=== PATIENT | male | born 1950 | race Caucasian/White ===

== ENCOUNTER → 2024-01-04 | Outpatient (CLI) | payer MEDICARE, OTHER, SELFPAY ==
--- NOTE | 2024-01-04 08:14 | VDUE_ITS ---
Reason For Study: Pre-Op Mapping Right Lower Arm Left Arm Proximal Radial artery diameter 2.2 x 2.3 Left Brachial artery diameter 4.2 x 3.7 mm. mm. Left Brachial artery waveform is monophasic . Proximal Radial artery waveform is Cephalic Vein at distal forearm measures 1.2 triphasic . x 1.5 mm. Right Arm Cephalic Vein at mid forearm measures 1.4 x Right Brachial artery diameter 4.3 x 3.9 mm. 1.5 mm. Right Brachial artery waveform is Cephalic Vein proximal forearm measures 1.9 x triphasic . 1.9 mm. Cephalic Vein at distal forearm measures 1.3 Cephalic Vein distal upper arm measures 1.3 x x 1.5 mm. 1.5 mm. Cephalic Vein at mid forearm measures 1.5 x Cephalic Vein at mid upper arm measures 1.1 x 1.6 mm. 1.1 mm. Cephalic Vein proximal forearm measures 1.7 Cephalic Vein at proximal upper arm measures x 1.7 mm. 1.1 x 1.6 mm. Cephalic Vein distal upper arm measures 2.6 Multiple branches noted in upper arm. x 2.6 mm. Proximal Basilic vein measures 4.1 x 3.7 mm. Cephalic Vein at mid upper arm measures 1.3 Mid Basilic vein measures 3.4 x 3.1 mm. x 1.3 mm. Distal Basilic vein measures 3.0 x 2.9 mm. Cephalic Vein at proximal upper arm measures Left Lower Arm 1.2 x 1.4 mm. Proximal Radial artery diameter 1.9 x 1.7 mm. Multiple branches noted in upper arm. Proximal Radial artery waveform is Proximal Basilic vein measures 4.5 x 4.7 mm. monophasic . Mid Basilic vein measures 1.7 x 2.1 mm. Distal Basilic vein measures 3.4 x 3.4 mm. VL/Dialysis Vein Map PRE-OP BILAT Interpretation Summary Bilateral upper extremity veins patent with measurements above. Right upper extremity arteries patent with normal waveforms and measurements ab ove. Left upper extremity arteries patent with monophasic waveforms throughout sugge sting more proximal disease. Measurements above. Ordering Physician: Presley Milan Referring Physician: Elena Kelley Performed By: Yariel Rivero RVT ???
== END | disposition home or self-care (01) ==
PROVIDERS: PCP Internal Medicine; Referring Provider Student in an Organized Health Care Education/Training Program; Visit Provider Student in an Organized Health Care Education/Training Program
DX: Z01.818 Encounter for other preprocedural examination (principal); N18.5 Chronic kidney disease, stage 5
CPT/HCPCS: 93985

== ENCOUNTER 2024-03-29 08:26 | Day surgery (SDC) | payer MEDICARE, OTHER, SELFPAY ==
[2024-03-23 15:53] LABS: Hematocrit 34.8 % (40-54); Hemoglobin 11.2 g/dL (13.0-16.5); Mean Corp Hgb Conc 32.2 g/dL (32-36); Mean Corpuscular Hgb 30.5 pg (27.0-32.0); Mean Corpuscular Volume 94.8 fL (80-94); Platelet Count 203 K/mm3 (150-450); RBC Distribution Width CV 13.2 % (11.6-14.6); RBC Distribution Width SD 45.7 fl (35.1-43.9); Red Blood Count 3.67 M/mm3 (4.6-6.2); White Blood Count 9.1 K/mm3 (4.4-11.0)
[2024-03-23 16:18] LABS: Anion Gap 4 (5-15); BUN 56 mg/dL (7-18); BUN/Creat Ratio 11.5 RATIO (10-20); Calcium,Total 10.5 mg/dL (8.5-10.1); Chloride 106 mmol/L (98-107); Creatinine, Serum 4.89 mg/dL (0.70-1.30); EST Glomerular Filtration Rate 13 mL/min (>60); Est Glom Filt Rate - Afr Amer 15 mL/min (>60); Glucose 99 mg/dL (74-106); Potassium 4.8 mmol/L (3.5-5.1); Sodium Level 135 mmol/L (136-145)
[2024-03-29] VITALS (8 sets, daily range): BP systolic 83–109; BP diastolic 65–79; PULSE 60–96; RESP 16; TEMP 36.4–36.9; O2SAT 93–97; BMI 22.8
--- NOTE | 2024-03-29 09:18 | PRE.ANES_ITS ---
ASA Classification* ASA Classification ASA Classification: 3 Assessment & Plan Anesthesia* Anesthesia Assessment Anesthesia Assessment: Discussed sedation and/or anesthesia options, risks, benefits, and alternatives with patient/parents/legal guardian/POA. Questions invited. The patient/parents/legal guardian/POA seems to understand and agrees to proceed with anesthesia plan. Reviewed the physical assessment, medical history, allergy history and patient home medications list prior to surgery/procedure/anesthetic and documented any changes. Performed airway and anesthesia risk assessments. Anesthesia Type Anesthesia Type: MAC (SEE WRITTEN PRE ANESTHESIA RECORD FOR FULL ASSESSMENT) Anesthesia Focused Assessment* Temperature: 98.3 F Pulse Rate: 60 Blood Pressure: 109/79 Respiratory Rate: 16 Pulse Ox: 96 Airway Assessment Mouth opens: >3 cm Mallampati Score: II Focused Labs Anesthesia Preop lab: CBC WBC 9.1 K/mm3 (4.4-11.0) 03/23/24 15:33 RBC 3.67 M/mm3 (4.6-6.2) L 03/23/24 15:33 Hgb 11.2 g/dL (13.0-16.5) L 03/23/24 15:33 Hct 34.8 % (40-54) L 03/23/24 15:33 Plt Count 203 K/mm3 (150-450) 03/23/24 15:33 CHEMISTRY Potassium 4.8 mmol/L (3.5-5.1) 03/23/24 15:33 Sodium 135 mmol/L (136-145) L 03/23/24 15:33 BUN 56 mg/dL (7-18) H 03/23/24 15:33 Creatinine 4.89 mg/dL (0.70-1.30) H 03/23/24 15:33 Glucose 99 mg/dL (74-106) 03/23/24 15:33 COAG Pre-Assessment Diagnosis/Proposed Procedure Planned Operative Procedure(s): (R) right upper extremity Arteriovenous Fistula,Creation possible graft Anesthesia History Anesthesia History - [employer]: Anesthesia History - [employer] Hx Hospitalization No 03/16/24 15:34 Any Problems With Anesthesia No 03/16/24 15:34 Cholinesterase deficiency No 03/16/24 15:34 You/Your Family Experience No 03/16/24 15:34 fever (hyperthermia) with Relationship Recent Exposure to Contagious No 03/29/24 08:49 Disease Does patient have nerve No 03/16/24 15:34 stimulator Patient instructed to have device shut off --Does patient have Pacemaker No 03/29/24 08:49 or ICD? When Was Last Pacemaker Check QUESTION #4 FULL TEXT: You/Your Family Experience fever (hyperthermia) with Anesthesia Last Oral Intake Last Oral intake: Last Oral Intake NPO since 02:00 03/29/24 08:49 Meds taken in AM with sips of Yes 03/29/24 08:49 water? Meds patient instructed to AMLODIPINE 03/29/24 08:49 take am of surgery BEBADEPRIL COREG HYDRALAZINE PONV PONV - [employer]: PONV - [employer] Female No 03/16/24 15:34 HX of Motion Sickness No 03/16/24 15:34 HX of N/V After Surgery No 03/16/24 15:34 Non-Smoker Yes 03/16/24 15:34 Duration of Surgery greater No 03/16/24 15:34 than 60 minutes Number of Risk Factors 1 03/16/24 15:34 PONV Score Low Risk 03/16/24 15:34 Height & Weight Height & Weight: Anesthesia: Height & Weight Height 5 ft 9 in 03/29/24 08:49 Weight: 70.4 kg 03/29/24 08:49 Body Mass Index (BMI) 22.8 03/29/24 08:49 Respiratory Assessment Respiratory Assessment - [employer]: Respiratory Tract Infection Hx - [employer] Hx Respiratory Tract Infection No 03/16/24 15:34 STOP Sleep Apnea STOP Sleep Apnea - [employer]: STOP Sleep Apnea - [employer] Hx Hypertension Yes: CONTROLLED ON MED 03/16/24 15:34 Hx Sleep Apnea No 03/16/24 15:34 CPAP BIPAP Do you snore loudly (louder No 03/16/24 15:34 than talking or can be heard Do you often feel tired/ No 03/16/24 15:34 fatigued/ sleepy during daytime? Has anyone observed you stop No 03/16/24 15:34 breathing during sleep? STOP Results Negative 03/16/24 15:34 QUESTION #5 FULL TEXT : Do you snore loudly (louder than talking or can be heard through closed doors)? 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 Specify any problems Hx of Preganancy in last 3 N/A 03/16/24 15:34 Months Nurse Filling Out Transfusion VCHRISTIN 03/16/24 15:34 & Questions: Date: 03/16/24 03/16/24 15:34 Time: 15:35 03/16/24 15:34 Patient unable to answer at this time (ie. confused, unrespo /Reproduction History /Reproductive History - [employer]: /Reproductive Hx- [employer] Hx Now No 03/16/24 15:34 Gestational Age (in weeks): EDC: Hx Hx Para Hx Section SAB No 03/16/24 15:34 Active Medications Active Medications: Current Medications Generic Name Dose Route Start Last Admin Trade Name Freq PRN Reason Stop Dose Admin Cefazolin Sodium 2 gm/ N/A 20 mls @ 400 mls/hr 03/29/24 10:00 IV 03/29/24 10:02 PREOP ONE [facility] Medical History Wears dentures Wears glasses History of renal disease Anemia Injury of back Back pain Injury of head and neck Smoker History of cardioversion History of echocardiogram Hypertension Cardiology follow-up encounter Hx of infection Afib Home Medications ?Medication ?Instructions ?Recorded ?Last Taken ?Type calcitriol 0.5 mcg capsule 0.5 mcg PO QDAY 02/18/24 03/28/24 History hydralazine 25 mg tablet 25 mg PO TID 02/18/24 03/28/24 History sodium bicarbonate 650 mg tablet 650 mg PO TID 02/18/24 03/28/24 History benazepril 20 mg tablet 20 mg PO BID 03/03/24 03/29/24 History carvedilol 6.25 mg tablet 6.25 mg PO BID 03/03/24 03/29/24 History amlodipine 10 mg tablet 10 mg PO DAILY 03/16/24 03/29/24 History Allergy/AdvReac Type Severity Reaction Status Date / Time No Known Allergies Allergy Verified 03/29/24 08:47 Family History Other CVA (cerebral vascular accident) Cancer Colon cancer Diabetes Hypertension Kidney disease Surgical History Hx of colonoscopy Hx of removal of cyst Social History Smoking Status: Current some day smoker tobacco type: cigarettes Tobacco: How many years used: 60 Review of Systems (Anesthesia) ROS Narrative System reviewed and no additional complaints, except as documented.
--- NOTE | 2024-03-29 12:11 | HP.PCM_ITS ---
History and Physical Allergies No Known Allergies Allergy (Unverified 02/18/24 13:00) Medications ?Medication ?Instructions ?Recorded ?Confirmed ?Type calcitriol 0.5 mcg capsule 0.5 mcg PO QDAY 02/18/24 02/18/24 History hydralazine 25 mg tablet 25 mg PO TID 02/18/24 02/18/24 History sodium bicarbonate 650 mg tablet 650 mg PO TID-QID 02/18/24 02/18/24 History amlodipine 5 mg tablet 5 mg PO QDAY 03/03/24 03/03/24 History benazepril 20 mg tablet 20 mg PO BID 03/03/24 03/03/24 History carvedilol 6.25 mg tablet 6.25 mg PO BID 03/03/24 03/03/24 History Have you fallen in the past year?: No Nurse's Note: Pt took BP med in office, will check at home PFSH Medical History Afib Family History Other CVA (cerebral vascular accident) Cancer Colon cancer Diabetes Hypertension Kidney disease Social History Smoking Status: Heavy Smoker (>10/day) Tobacco: How many years used: 60 HPI HPI HPI: ESTIVEN FUETNES, is a 73 M who presents to the office today for evaluation for dialysis access, not yet on HD. He has chronic renal decline of hypertension, followed for a few years. Right hand dominant, no prior arm/rib/clavicle fract ure/axillary node dissection/pacer/PICC. He does note that they are not often able to register BP readings on left arm. History of a.fib, not on anticoagulation. ROS General General: Yes weight change; No appetite, fatigue, colon cancer, breast cancer or weakness HEENT HEENT: No difficulty swallowing, eye injury, eye surgery, swollen glands or hoarseness Endo Endocrine: No thyroid disease, diabetes mellitus, thyroid cancer, Hair loss, heat intolerance or cold intolerance Skin Skin: No rash or changing moles Musc Musculoskeletal: Yes back problems; No arthritis, rheumatoid arthritis, gout or joint pain Cardio Cardiovascular: Yes atrial fibrillation and high blood pressure; No murmur, pacemaker, heart disease, heart attack, heart stent, palpitations, shortness of breat with exertion or chest pain Psych Psychiatric: No depression, anxiety or hearing voices Resp Respiratory: No shortness of breath, No sleep apnea, Yes cough, No COPD, No asthma, No emphysema and No wheezing Gastro Gastrointestinal: No abdominal pain, No nausea or vomiting, Yes diarrhea, No constipation, No blood in stool, No acid reflux, No hemorrhoids, No ulcers, No gallbladder problem and No black,tarry stools Aden Hematologic: No blood thinners, No blood disorders, No bleeding, No anemia and No blood clots Neuro Neurologic: No system reviewed and no additional complaints, except as documented, No as per HPI, No abnormal gait, No abnormal hearing, No abnormal movements, No abnormal speech, No behavioral changes, No burning sensations, No confusion, No convulsions, No disequilibrium, No dizziness, No localized weakness, No frequent falls, No headache(s), No lack of coordination, No loss of vision, No memory loss, Yes numbness, No other visual disturbances, No radicular pain, Yes restless legs, No sensory deficit, No syncope, Yes tingling, No tremor(s), No weakness and No other Exam Const General: cooperative, healthy appearing, comfortable, no acute distress and well developed Nutritional Appearance: well nourished Orientation: alert, awake and oriented x3 [facility] Head: normocephalic and atraumatic Ears: hearing grossly normal bilaterally Nose: external nose normal Eyes General: appearance normal, both eyes and all related structures EOM: EOM intact bilaterally Neck Neck: normal visual inspection, full ROM, no lymphadenopathy and trachea midline Thyroid: thyroid normal Lymphatic: no lymphadenopathy noted Resp Effort & Inspection: normal respiratory effort, able to speak in complete sentences, symmetric chest movement, no audible wheezes, not labored, no stridor and no use of accessory muscles Auscultation: clear to auscultation bilaterally Cardio Rate: regular rate Rhythm: regular rhythm Heart Sounds: no murmurs Bruits: no carotid bruits Pulses: brachial pulses present on the right and radial pulses present on the right Skin General: no rashes or lesions noted and no erythema Wounds: no wounds Neuro Cranial Nerves: CN's II-XI intact bilaterally and EOM intact bilaterally Speech: speech normal Gait: normal gait Motor: strength 5/5 throughout Sensory Exam: no sensory deficits noted Psych Appearance: grossly normal and well kempt Mental Status: mental status grossly normal Mood: congruent mood Speech and Movement: speech and movement normal Thought Content: normal Judgment: judgment good Coding Level of Care Code Off vis,new,level 4 Diagnoses Stage 4 chronic kidney disease N18.4 Chronic kidney disease stage: stage 4 (severe) Assessment and Plan Assessment and Plan (1) CKD (chronic kidney disease): Status: Chronic Qualifiers: Chronic kidney disease stage: stage 4 (severe) Qualified Code(s): N18.4 - Chronic kidney disease, stage 4 (severe) Plan: -vein mapping reveals right basilic vein with marginal caliber, with mid segment significantly smaller -no other veins adequate -will evaluate with ultrasound in OR; if mid-basilic is in fact diminutive size then graft, if better than mapping suggests then stage I basilic AVF -left arm likely has poor inflow based on exam/mapping so not an option
[2024-03-29] MEDS: Cefazolin 2 GM in Syringe IV (13:14)
[2024-03-29] MEDS: Lidocaine 1% (20 ml mdv) 20 ML Vial (13:25)
[2024-03-29] MEDS: Bupivacaine 0.25% 30 ML Vial (13:25)
--- NOTE | 2024-03-29 14:20 | DCINST_ITS ---
Discharge Instructions Diet Discharge Diet: No restrictions Activity May shower in (days): 2 Lifting Restrictions: do not lift > 20 lbs with right arm for 14 days Additional Activity Instructions:: do not submerge incision for 14 days Dressing / Incision Call your doctor if your incision/area has: Sudden Increased Bleeding, Increased Pain/ Swelling, Increased Redness and Foul Smelling Discharge Call your doctor if you observe: Fever of 101 or Higher, Coldness, Increased Pain and Numbness or Tingling Remove Dressing in: 2 days Cleanse incision/area with: Soap & Water Follow Up Care Test Results: Test results from this visit will be discussed in further detail at your follow- up appointment, if applicable. Discharge Plan Admission Attending Provider: Abelardo Nash Primary Care Provider: Elena Kelley Instructions Print Language: Swedish Discharge Orders/Prescriptions Prescriptions: New oxycodone 5 mg tablet 5 mg PO Q8H PRN (Reason: pain) 2 Days Qty: 6 0RF Continued calcitriol 0.5 mcg capsule 0.5 mcg PO QDAY hydralazine 25 mg tablet 25 mg PO TID sodium bicarbonate 650 mg tablet 650 mg PO TID carvedilol 6.25 mg tablet 6.25 mg PO BID Rx Instructions: must administer with a meal/food benazepril 20 mg tablet 20 mg PO BID amlodipine 10 mg tablet 10 mg PO DAILY Referrals / Follow Up: Elena Kelley MD [Primary Care Provider] - Disposition Disposition (needs filled in before D/C Order can be placed): Home, Self Care
--- NOTE | 2024-03-29 14:44 | PCM.POST.ANE ---
Anesthesia: Postop Eval I Current Vital Signs Temperature: 98.4 F Pulse Rate: 89 Blood Pressure: 89/65 Respiratory Rate: 16 Pulse Ox: 97 Oxygen Delivery Method: Room Air Assessment Airway patent: Yes Spontaneous unlabored respirations: Yes Mental status: Awake and Calm nausea: No Vomiting: No Anesthesia Complication: No Fluid Hydration Crystalloid volume administer (ml): 50 Total IV fluid infused: 50 Progress Note Anesthesia document: Postop Eval 1 completed: Yes
--- NOTE | 2024-03-29 15:07 | POSTOPAN2_ITS ---
Anesthesia Postop Eval I Sum Postop Eval Completion status Anesthesia document: Postop Eval 1 completed: Yes Anesthesia Postop Eval I Summary Anesthesia Postop Eval I Summary: Anesthesia Postop Eval I: Assessment Summary Airway patent Yes 03/29/24 14:45 RECYCLABLE MATERIALS DISTRIBUTOR.JDEF Spontaneous unlabored Yes 03/29/24 14:45 RECYCLABLE MATERIALS DISTRIBUTOR.JDEF respirations Mental status Awake,Calm 03/29/24 14:45 RECYCLABLE MATERIALS DISTRIBUTOR.JDEF nausea No 03/29/24 14:45 RECYCLABLE MATERIALS DISTRIBUTOR.JDEF Vomiting No 03/29/24 14:45 RECYCLABLE MATERIALS DISTRIBUTOR.JDEF Anesthesia Postop Eval I: Fluid Summary Crystalloid volume administer 50 03/29/24 14:45 RECYCLABLE MATERIALS DISTRIBUTOR.JDEF (ml) Colloids volume administered ( ml) Blood Product volume administered (ml) Total IV fluid infused 50 03/29/24 14:45 RECYCLABLE MATERIALS DISTRIBUTOR.JDEF Anesthesia Postop Eval I: Summary Notes Anesthesia Complication No 03/29/24 14:45 RECYCLABLE MATERIALS DISTRIBUTOR.JDEF Anesthesia Complication Comment: Post-operative progress note Anesthesia: Postop Eval II Evaluation Mental status: Awake Pain Level: 0 nausea: No Vomiting: No
--- NOTE | 2024-03-29 15:07 | PCM.POSTANE2 ---
Anesthesia Postop Eval I Sum Postop Eval Completion status Anesthesia document: Postop Eval 1 completed: Yes Anesthesia Postop Eval I Summary Anesthesia Postop Eval I Summary: Anesthesia Postop Eval I: Assessment Summary Airway patent Yes 03/29/24 14:45 EQUIPMENT ENGINEERING TECHNICIAN.JDEF Spontaneous unlabored Yes 03/29/24 14:45 EQUIPMENT ENGINEERING TECHNICIAN.JDEF respirations Mental status Awake,Calm 03/29/24 14:45 EQUIPMENT ENGINEERING TECHNICIAN.JDEF nausea No 03/29/24 14:45 EQUIPMENT ENGINEERING TECHNICIAN.JDEF Vomiting No 03/29/24 14:45 EQUIPMENT ENGINEERING TECHNICIAN.JDEF Anesthesia Postop Eval I: Fluid Summary Crystalloid volume administer 50 03/29/24 14:45 EQUIPMENT ENGINEERING TECHNICIAN.JDEF (ml) Colloids volume administered ( ml) Blood Product volume administered (ml) Total IV fluid infused 50 03/29/24 14:45 EQUIPMENT ENGINEERING TECHNICIAN.JDEF Anesthesia Postop Eval I: Summary Notes Anesthesia Complication No 03/29/24 14:45 EQUIPMENT ENGINEERING TECHNICIAN.JDEF Anesthesia Complication Comment: Post-operative progress note Anesthesia: Postop Eval II Evaluation Mental status: Awake Pain Level: 0 nausea: No Vomiting: No
--- NOTE | 2024-03-29 15:39 | POSTOPAN2_ITS ---
Anesthesia Postop Eval I Sum Postop Eval Completion status Anesthesia document: Postop Eval 1 completed: Yes Anesthesia Postop Eval I Summary Anesthesia Postop Eval I Summary: Anesthesia Postop Eval I: Assessment Summary Airway patent Yes 03/29/24 14:45 DOVETAIL MACHINE OPERATOR.JDEF Spontaneous unlabored Yes 03/29/24 14:45 DOVETAIL MACHINE OPERATOR.REDF respirations Mental status Awake 03/29/24 15:07 nausea No 03/29/24 15:07 Vomiting No 03/29/24 15:07 Anesthesia Postop Eval I: Fluid Summary Crystalloid volume administer 50 03/29/24 14:45 DOVETAIL MACHINE OPERATOR.JDEF (ml) Colloids volume administered ( ml) Blood Product volume administered (ml) Total IV fluid infused 50 03/29/24 14:45 DOVETAIL MACHINE OPERATOR.JDEF Anesthesia Postop Eval I: Summary Notes Anesthesia Complication No 03/29/24 14:45 DOVETAIL MACHINE OPERATOR.JDEF Anesthesia Complication Comment: Post-operative progress note Anesthesia: Postop Eval II Evaluation Mental status: Awake Pain Level: 0 nausea: No Vomiting: No
--- NOTE | 2024-03-29 15:39 | PCM.POSTANE2 ---
Anesthesia Postop Eval I Sum Postop Eval Completion status Anesthesia document: Postop Eval 1 completed: Yes Anesthesia Postop Eval I Summary Anesthesia Postop Eval I Summary: Anesthesia Postop Eval I: Assessment Summary Airway patent Yes 03/29/24 14:45 AUTO MOTOR MECHANIC.JDEF Spontaneous unlabored Yes 03/29/24 14:45 AUTO MOTOR MECHANIC.REDF respirations Mental status Awake 03/29/24 15:07 nausea No 03/29/24 15:07 Vomiting No 03/29/24 15:07 Anesthesia Postop Eval I: Fluid Summary Crystalloid volume administer 50 03/29/24 14:45 AUTO MOTOR MECHANIC.JDEF (ml) Colloids volume administered ( ml) Blood Product volume administered (ml) Total IV fluid infused 50 03/29/24 14:45 AUTO MOTOR MECHANIC.JDEF Anesthesia Postop Eval I: Summary Notes Anesthesia Complication No 03/29/24 14:45 AUTO MOTOR MECHANIC.JDEF Anesthesia Complication Comment: Post-operative progress note Anesthesia: Postop Eval II Evaluation Mental status: Awake Pain Level: 0 nausea: No Vomiting: No
--- NOTE | 2024-03-29 15:43 | PCM.OPRPT ---
Operative Report (Standard) Operative Information Surgery/Procedure Performed: Right stage I brachial basilic fistula creation Surgeon: Abelardo Nash Date of Procedure: 03/29/24 Procedure Start Time: 13:30 Procedure Stop Time: 14:30 Pre-Operative Diagnosis: Chronic kidney disease Post-Operative Diagnosis: Same Select all DRAINS/GRAFTS/IMPLANTS that apply: None Type of Anesthesia: Local and MAC Estimated Blood Loss: 5 Specimen collected: No Description of surgery: HPI: Patient is a 73-year-old male with chronic kidney disease not yet on dialysis who had prior vein mapping which revealed marginal right basilic vein. He presents now for fistula creation versus possible graft insertion. Description of procedure: Upon obtaining form consent and verification correct patient procedure site patient was taken to the operating where he was positioned prepped and draped in usual sterile fashion. Timeouts performed and deep sedation administered by anesthesia. Ultrasound was used to evaluate the basilic vein was found to be of adequate caliber throughout the upper arm and in close proximity to the brachial artery just inferior to the antecubital crease. Skin overlying the vessels was anesthetized with 1% lidocaine and transverse incision made 1 fingerbreadth distal to the antecubital crease. Bovie electrocautery was dissect down through subcutaneous tissue and self-retaining tractor put in position. Once the medial branch the cubital vein was identified sharp dissection used dissect free proximal and distal and a right angle was placed vessel loop. Further dissection was carried down to the fascia which was incised vertically exposing the brachial artery. Sharp dissection was dissect free the brachial artery proximal and distal with care taken identify and protect adjacent nerve and vein structures. A right angle was used to place Vesseloops proximal and distal and the patient heparinized and allowed to circulate for 3 minutes. The cubital vein was then ligated distally in the field and the vein marked to maintain orientation. It was then dilated up to 3 mm and flushed heparinized saline. The brachial artery was then occluded with Vesseloops and a longitudinal arteriotomy created with 11 blade extended with Anne scissors. The vein was then beveled to match the arteriotomy and anastomosis performed using a 6-0 Prolene in a running fashion. Prior to completing suture line vessels were backbled after completing suture line clamps removed with satisfactory stasis was noted. There is a palpable thrill in the basilic vein to the mid upper arm and palpable radial and ulnar pulse at the wrist. Heparin was then reversed with protamine the incision inspected for hemostasis. Incision was then closed with 3-0 Vicryl followed by 4 Monocryl and Dermabond for the skin. The patient was then taken the recovery area with anticipated discharge to home. Surgical Findings: Palpable thrill in the fistula and palpable radial ulnar pulses at the wrist Actuarial Clerk rn cvicu: Yes Actuarial Science Professor: Martha Awad Tasks completed by support assistant: Opening & closing, Hemostasis: Electrocautery and Retracting Complications Complications: No
== END 2024-03-29 16:22 | disposition home or self-care (01) ==
LOC: SDC 08:27 → AC 08:28
PROVIDERS: PCP Internal Medicine; Referring Provider Surgery Trauma Surgery; Visit Provider Surgery Trauma Surgery
PROC: (CPT 36821; principal; 2024-03-29 09:45)
DX: I12.9 Hypertensive chronic kidney disease with stage 1 through stage 4 chronic kidney disease, or unspecified chronic kidney disease (principal); N18.4 Chronic kidney disease, stage 4 (severe); I48.91 Unspecified atrial fibrillation; F17.200 Nicotine dependence, unspecified, uncomplicated; Z79.899 Other long term (current) drug therapy
CPT/HCPCS: 36821; 01844; 36415; 80048; 85027; A4648; A4216; J2405

== ENCOUNTER 2024-07-19 09:19 | Day surgery (SDC) | payer MEDICARE, OTHER, SELFPAY ==
--- NOTE | 2024-06-08 14:25 | PAT.ANE_ITS ---
Pre-Assessment Diagnosis/Proposed Procedure Planned Operative Procedure(s): (R) right brachiobasilic Arteriovenous Fistula,Transposition stage II Anesthesia History Anesthesia History - human resources coordinator: Anesthesia History - human resources coordinator Hx Hospitalization No 06/08/24 14:00 Any Problems With Anesthesia No 06/08/24 14:00 Cholinesterase deficiency No 06/08/24 14:00 You/Your Family Experience No 06/08/24 14:00 fever (hyperthermia) with Relationship Recent Exposure to Contagious No 03/29/24 08:49 Disease Does patient have nerve No 06/08/24 14:00 stimulator Patient instructed to have device shut off --Does patient have Pacemaker or ICD? When Was Last Pacemaker Check QUESTION #4 FULL TEXT: You/Your Family Experience fever (hyperthermia) with Anesthesia Last Oral Intake Last Oral intake: Last Oral Intake NPO since Meds taken in AM with sips of water? Meds patient instructed to take am of surgery PONV PONV - human resources coordinator: PONV - human resources coordinator Female No 06/08/24 14:00 HX of Motion Sickness No 06/08/24 14:00 HX of N/V After Surgery No 06/08/24 14:00 Non-Smoker No 06/08/24 14:00 Duration of Surgery greater No 06/08/24 14:00 than 60 minutes Number of Risk Factors PONV Score Height & Weight Height & Weight: Anesthesia: Height & Weight Height 5 ft 9 in 03/29/24 08:49 Respiratory Assessment Respiratory Assessment - human resources coordinator: Respiratory Tract Infection Hx - human resources coordinator Hx Respiratory Tract Infection No 06/08/24 14:00 STOP Sleep Apnea STOP Sleep Apnea - human resources coordinator: STOP Sleep Apnea - human resources coordinator Hx Hypertension Yes: CONTROLLED ON MED 06/08/24 14:00 Hx Sleep Apnea No 06/08/24 14:00 CPAP BIPAP Do you snore loudly (louder No 06/08/24 14:00 than talking or can be heard Do you often feel tired/ No 06/08/24 14:00 fatigued/ sleepy during daytime? Has anyone observed you stop No 06/08/24 14:00 breathing during sleep? STOP Results Negative 06/08/24 14:00 QUESTION #5 FULL TEXT : Do you snore loudly (louder than talking or can be heard through closed doors)? 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 Specify any problems Hx of Preganancy in last 3 N/A 06/08/24 14:00 Months Nurse Filling Out Transfusion [facility] 06/08/24 14:00 & Questions: Date: 06/08/24 06/08/24 14:00 Time: 14:01 06/08/24 14:00 Patient unable to answer at this time (ie. confused, unrespo /Reproduction History /Reproductive History - human resources coordinator: /Reproductive Hx- human resources coordinator Hx Now Gestational Age (in weeks): EDC: Hx Hx Para Hx Section SAB No 06/08/24 14:00 [facility] Medical History Wears dentures Wears glasses History of renal disease Anemia Injury of back Back pain Injury of head and neck Smoker History of cardioversion History of echocardiogram Hypertension Cardiology follow-up encounter Hx of infection Afib Home Medications ?Medication ?Instructions ?Recorded ?Last Taken ?Type calcitriol 0.5 mcg capsule 0.5 mcg PO QDAY 02/18/24 03/28/24 History hydralazine 25 mg tablet 25 mg PO TID 02/18/24 03/28/24 History sodium bicarbonate 650 mg tablet 650 mg PO TID 02/18/24 03/28/24 History benazepril 20 mg tablet 20 mg PO BID 03/03/24 03/29/24 History carvedilol 6.25 mg tablet 6.25 mg PO BID 03/03/24 03/29/24 History amlodipine 10 mg tablet 10 mg PO DAILY 03/16/24 03/29/24 History Allergy/AdvReac Type Severity Reaction Status Date / Time No Known Allergies Allergy Verified 06/08/24 13:59 Family History Other CVA (cerebral vascular accident) Cancer Colon cancer Diabetes Hypertension Kidney disease Surgical History Hx of colonoscopy Hx of removal of cyst Social History Smoking Status: Current some day smoker tobacco type: cigarettes Tobacco: How many years used: 60 Audit: Pertinent Findings Pertinent Findings EKG Perinent findings: 10/24/2022 history of chronic atrial flutter poor quality EKG noted hard to distinguish Consult pertinent findings: Cardiology 10/24/2022 hypertension controlled atrial fibrillation status post Cartiva version 05/20/2022 with recurrence rate controlled chronic kidney disease stage III history of mild pulmonary hypertension Recommendation Anesthesia Recommendation Anesthesia recommendation: OPTIMIZED for anesthesia
[2024-06-15 16:19] LABS: Hematocrit 33.2 % (40-54); Hemoglobin 10.7 g/dL (13.0-16.5); Mean Corp Hgb Conc 32.2 g/dL (32-36); Mean Corpuscular Hgb 30.7 pg (27.0-32.0); Mean Corpuscular Volume 95.4 fL (80-94); Mean Platelet Vol. 11.1 fl (6.2-12.0); Platelet Count 190 K/mm3 (150-450); RBC Distribution Width CV 14.3 % (11.6-14.6); RBC Distribution Width SD 49.8 fl (35.1-43.9); Red Blood Count 3.48 M/mm3 (4.6-6.2)
[2024-06-15 16:57] LABS: Anion Gap 6 (5-15); BUN 71 mg/dL (7-18); Calcium,Total 10.6 mg/dL (8.5-10.1); Chloride 108 mmol/L (98-107); Creatinine, Serum 5.45 mg/dL (0.70-1.30); EST Glomerular Filtration Rate 11 mL/min (>60); Est Glom Filt Rate - Afr Amer 13 mL/min (>60); Glucose 139 mg/dL (74-106); Sodium Level 140 mmol/L (136-145)
[2024-07-19] VITALS (14 sets, daily range): BP systolic 92–129; BP diastolic 63–109; PULSE 52–108; RESP 12–20; TEMP 36.2–36.8; O2SAT 82–98; BMI 21.9
[2024-07-19 09:28] LABS: INR Fingerstick 1.8; Prothrombin Time Fingerstick 20.3 SEC (11.7-14.9)
[2024-07-19] MEDS: 0.9% Normal Saline (1000mL) 1,000 ML 15 ML IV (10:06)
[2024-07-19 10:12] LABS: International Normalized Ratio 1.4; Prothrombin Time (Protime)PT. 17.5 SECONDS (11.7-14.9)
--- NOTE | 2024-07-19 10:40 | PRE.ANES_ITS ---
ASA Classification* ASA Classification ASA Classification: 3 Assessment & Plan Anesthesia* Anesthesia Assessment Anesthesia Assessment: Discussed sedation and/or anesthesia options, risks, benefits, and alternatives with patient/parents/legal guardian/POA. Questions invited. The patient/parents/legal guardian/POA seems to understand and agrees to proceed with anesthesia plan. Reviewed the physical assessment, medical history, allergy history and patient home medications list prior to surgery/procedure/anesthetic and documented any changes. Performed airway and anesthesia risk assessments. Anesthesia Type Anesthesia Type: MAC History Source History Obtained from:: Patient and Chart Anesthesia Focused Assessment* Temperature: 98.2 F Pulse Rate: 52 Blood Pressure: 118/79 Respiratory Rate: 12 Pulse Ox: 94 Oxygen Delivery Method: Room Air Airway Assessment Mouth opens: >3 cm Mallampati Score: III Teeth Condition: Dentures (Patient has full dentures top and bottom.) Neck Range of motion (ROM): Limited ROM (Somewhat decreased extension) Focused Labs Anesthesia Preop lab: CBC WBC 8.0 K/mm3 (4.4-11.0) 06/15/24 14:54 06/15/24 RBC 3.48 M/mm3 (4.6-6.2) L 06/15/24 14:54 06/15/24 Hgb 10.7 g/dL (13.0-16.5) L 06/15/24 14:54 5 Hct 33.2 % (40-54) L 06/15/24 14:54 06/15/24 Plt Count 190 K/mm3 (150-450) 06/15/24 14:54 06/15/24 CHEMISTRY Potassium 4.0 mmol/L (3.5-5.1) 06/15/24 14:54 06/15/24 Sodium 140 mmol/L (136-145) 06/15/24 14:54 06/15/24 BUN 71 mg/dL (7-18) H 06/15/24 14:54 06/15/24 Creatinine 5.45 mg/dL (0.70-1.30) H 06/15/24 14:54 Glucose 139 mg/dL (74-106) H 06/15/24 14:54 06/15/24 COAG PT 17.5 SECONDS (11.7-14.9) H 07/19/24 09:50 0201/23 Pre-Assessment Diagnosis/Proposed Procedure Planned Operative Procedure(s): (R) right brachiobasilic Arteriovenous Fistula,Transposition stage II Anesthesia History Anesthesia History - vp software engineering: Anesthesia History - vp software engineering Hx Hospitalization Yes: HOSPITALIZATION AT 07/12/24 14:08 [facility] (+) RSV LAST MONTH Any Problems With Anesthesia No 07/12/24 14:08 Cholinesterase deficiency No 07/12/24 14:08 You/Your Family Experience No 07/12/24 14:08 fever (hyperthermia) with Relationship Recent Exposure to Contagious No 07/19/24 09:59 Disease Does patient have nerve No 07/12/24 14:08 stimulator Patient instructed to have device shut off --Does patient have Pacemaker No 07/19/24 09:59 or ICD? When Was Last Pacemaker Check QUESTION #4 FULL TEXT: You/Your Family Experience fever (hyperthermia) with Anesthesia Any additional information?: Yes Any Problems With Anesthesia: No Cholinesterase deficiency: No You/your family experience fever (hyperthermia) with anesthesia: No Last Oral Intake Last Oral intake: Last Oral Intake NPO since 22:00 07/19/24 09:59 Meds taken in AM with sips of water? Meds patient instructed to take am of surgery PONV PONV - vp software engineering: PONV - vp software engineering Female No 07/12/24 14:08 HX of Motion Sickness No 07/12/24 14:08 HX of N/V After Surgery No 07/12/24 14:08 Non-Smoker No 07/12/24 14:08 Duration of Surgery greater No 07/12/24 14:08 than 60 minutes Number of Risk Factors PONV Score Height & Weight Height & Weight: Anesthesia: Height & Weight Height 5 ft 9 in 07/19/24 09:59 Weight: 67.5 kg 07/19/24 09:59 Body Mass Index (BMI) 21.9 07/19/24 09:59 Respiratory Assessment Respiratory Assessment - vp software engineering: Respiratory Tract Infection Hx - vp software engineering Hx Respiratory Tract Infection No 07/12/24 14:08 Any additional information?: Yes Hx Respiratory Tract Infection: Yes (Patient resolved his RSV infection about 2 weeks ago. Some lingering cough) STOP Sleep Apnea STOP Sleep Apnea - vp software engineering: STOP Sleep Apnea - vp software engineering Hx Hypertension Yes: CONTROLLED ON MED 07/12/24 14:08 Hx Sleep Apnea No 07/12/24 14:08 CPAP BIPAP Do you snore loudly (louder No 07/12/24 14:08 than talking or can be heard Do you often feel tired/ No 07/12/24 14:08 fatigued/ sleepy during daytime? Has anyone observed you stop No 07/12/24 14:08 breathing during sleep? STOP Results Negative 07/12/24 14:08 QUESTION #5 FULL TEXT : Do you snore loudly (louder than talking or can be heard through closed doors)? 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 Specify any problems Hx of Preganancy in last 3 N/A 07/12/24 14:08 Months Nurse Filling Out Transfusion EHMAN 07/12/24 14:08 & Questions: Date: 07/12/24 07/12/24 14:08 Time: 14:08 07/12/24 14:08 Patient unable to answer at this time (ie. confused, unrespo /Reproduction History /Reproductive History - vp software engineering: /Reproductive Hx- vp software engineering Hx Now Gestational Age (in weeks): EDC: Hx Hx Para Hx Section SAB No 07/12/24 14:08 Active Medications Active Medications: Current Medications Generic Name Dose Route Start Last Admin Trade Name Freq PRN Reason Stop Dose Admin Cefazolin Sodium 2 gm/ N/A 20 mls @ 400 mls/hr 07/19/24 11:00 IV 07/19/24 11:02 PREOP ONE Sodium Chloride 1,000 mls @ 15 mls/hr 07/19/24 09:30 07/19/24 10:06 IV 07/24/24 22:49 15 mls/hr .Q48H SANTIAGO Administration Protocol [facility] Medical History Wears dentures Wears glasses History of renal disease Anemia Injury of back Back pain Injury of head and neck Smoker History of cardioversion History of echocardiogram Hypertension Cardiology follow-up encounter Hx of infection Afib Home Medications ?Medication ?Instructions ?Recorded ?Last Taken ?Type calcitriol 0.5 mcg capsule 0.5 mcg PO QDAY 02/18/24 History sodium bicarbonate 650 mg tablet 650 mg PO TID 4 07/16/24 History bumetanide 1 mg tablet 1 mg PO QDAY 06/30/24 History diltiazem HCl 240 mg 240 mg PO QAM 06/30/2407/19 History capsule,extended release 24 hr warfarin 5 mg tablet 5 mg PO QDAY #1 TAB 06/30/24 07/16/24 Rx Allergy/AdvReac Type Severity Reaction Status Date / Time No Known Allergies Allergy Verified 07/19/24 09:57 Family History Other CVA (cerebral vascular accident) Cancer Colon cancer Diabetes Hypertension Kidney disease Surgical History Hx of colonoscopy Hx of removal of cyst Social History Smoking Status: Current some day smoker tobacco type: cigarettes Tobacco: How many years used: 60 Review of Systems (Anesthesia) ROS Narrative System reviewed and no additional complaints, except as documented.
--- NOTE | 2024-07-19 12:07 | PCM.HP.STD ---
HPI - General HPI Narrative ESTIVEN FUENTES, is a 73 M who presents with prior right stage I basilic fistula that has matured. [facility] Medical History Wears dentures Wears glasses History of renal disease Anemia Injury of back Back pain Injury of head and neck Smoker History of cardioversion History of echocardiogram Hypertension Cardiology follow-up encounter Hx of infection Afib Home Medications ?Medication ?Instructions ?Recorded ?Last Taken ?Type calcitriol 0.5 mcg capsule 0.5 mcg PO QDAY 02/18/24 07/16/24 History sodium bicarbonate 650 mg tablet 650 mg PO TID 02/18/24 07/16/24 History bumetanide 1 mg tablet 1 mg PO QDAY 06/30/24 07/16/24 History diltiazem HCl 240 mg 240 mg PO QAM 06/30/24 07/19/24 History capsule,extended release 24 hr warfarin 5 mg tablet 5 mg PO QDAY #1 TAB 06/30/24 07/16/24 Rx Allergy/AdvReac Type Severity Reaction Status Date / Time No Known Allergies Allergy Verified 07/19/24 09:57 Family History Other CVA (cerebral vascular accident) Cancer Colon cancer Diabetes Hypertension Kidney disease Surgical History Hx of colonoscopy Hx of removal of cyst Social History Smoking Status: Current every day smoker (Patient did not smoke today.) tobacco type: cigarettes Tobacco: How many years used: 60 ROS Constitutional Constitutional: Denies chills, fever(s), frequent falls, lethargy or weakness Eyes Eyes: Denies blind spots, change in vision or loss of vision ENT HEENT: Denies bleeding gums, hoarseness or sore throat Cardiovascular Cardiovascular: Denies abdominal pain, bluish discoloration of hand/feet, chest pain with activity, claudication, cold extremities, cyanosis, dyspnea on exertion, erythema on extremities, irregular heart rhythm, leg edema, leg ulcers, numbness in extremities or weakness in extremities Respiratory/Chest Respiratory/Chest: Denies cough, excessive phlegm production, shortness of breath at rest, shortness of breath with exertion or wheezing Gastrointestinal Gastrointestinal: Denies anorexia, change in stool character, constipation, diarrhea, melena or rectal bleeding Genitourinary Genitourinary: Denies dysuria or hematuria Musculoskeletal Musculoskeletal: Denies abnormal gait Integumentary Integumentary: Reports other Details: ; Denies erythema, non-healing lesions or wounds Neurologic Neurologic: Denies abnormal speech, focal weakness, headache(s), loss of vision, numbness, paresthesias or sensory deficit Hematologic/Lymphatic Hematologic/Lymphatic: Denies easy bleeding, easy bruising or lymphadenopathy Vital Signs Vital Signs Vital Signs: 07/19/24 09:59 07/19/24 09:59 07/19/24 10:51 Temperature 98.2 F 98.2 F Temperature Source Temporal Pulse Rate 52 L 52 L Respiratory Rate 12 12 Respiratory Pattern Normal Blood Pressure 118/79 118/79 Blood Pressure Mean 92 Blood Pressure Source Manual Blood Pressure Position Semi-Fowlers Blood Pressure Location Left Arm Pulse Ox 94 94 Oxygen Delivery Method Room Air Room Air Weight Weight: 148 lb 12.992 oz Body Mass Index (BMI) 21.9 Physical Exam Const alert, oriented x3, no apparent distress and healthy appearing General Appearance: cooperative; Negative for combative or lethargic Orientation / Consciousness: awake Exam Limitations: no limitations HEENT Head and Scalp: normocephalic and atraumatic Eyes EOMs intact bilaterally General Eye: normal appearance of both eyes Neck full ROM General: trachea midline Resp normal respiratory effort and no use of accessory muscles Effort and Inspection: Negative for labored, stridor or audible wheezes Cardio regular rate Peripheral Pulses: brachial pulses present and radial pulses present Back/Spine Cervical Spine: cervical ROM normal Extremity full ROM, normal capillary refill and no clubbing, cyanosis or edema Skin no rashes or lesions noted and no wounds Neuro oriented x3, CN's II-XII intact bilaterally, no focal motor deficits and no sensory deficits noted Psych thought process normal, cooperative, affect normal, speech normal and activity/motor behavior normal Results Lab / Micro Data 06/15/24 14:54 06/15/24 14:54 Labs: Laboratory Results - last 24 hr 07/19/24 09:26: POC PT 20.3 H, INR 1.8 07/19/24 09:50: PT 17.5 H, INR 1.4 Assessment & Plan Assessment/Plan (1) AVF (arteriovenous fistula): PLAN: -stage II basilic transposition
[2024-07-19] MEDS: Cefazolin 2 GM in Syringe IV (12:48)
--- NOTE | 2024-07-19 15:13 | DCINST_ITS ---
Discharge Instructions Diet Discharge Diet: No restrictions Activity May shower in (days): 2 Lifting Restrictions: do not lift > 20 lbs with right arm for 3 weeks Additional Activity Instructions:: do not submerge incision for 3 weeks Dressing / Incision Call your doctor if your incision/area has: Sudden Increased Bleeding, Increased Pain/ Swelling, Increased Redness and Foul Smelling Discharge Call your doctor if you observe: Fever of 101 or Higher, Coldness, Increased Pain and Numbness or Tingling Remove Dressing in: 2 days Cleanse incision/area with: Soap & Water Follow Up Care Test Results: Test results from this visit will be discussed in further detail at your follow- up appointment, if applicable. Discharge Plan Admission Attending Provider: Abelardo Nash Primary Care Provider: Elena Kelley Instructions Print Language: Georgian Discharge Orders/Prescriptions Prescriptions: New oxycodone 5 mg tablet 5 mg PO Q8H PRN (Reason: pain) 3 Days Qty: 9 0RF Continued calcitriol 0.5 mcg capsule 0.5 mcg PO QDAY sodium bicarbonate 650 mg tablet 650 mg PO TID diltiazem HCl 240 mg capsule,extended release 24hr 240 mg PO QAM bumetanide 1 mg tablet 1 mg PO QDAY warfarin 5 mg tablet 5 mg PO QDAY Qty: 1 0RF Patient Comments: WILL STOP ON 07/16 Referrals / Follow Up: Elena Kelley MD [Primary Care Provider] - Disposition Disposition (needs filled in before D/C Order can be placed): Home, Self Care
[2024-07-19] MEDS: Bupivacaine 0.25% 30 ML Vial (15:14)
--- NOTE | 2024-07-19 17:01 | PCM.POST.ANE ---
Anesthesia: Postop Eval I Current Vital Signs Temperature: 97.5 F Pulse Rate: 97 Blood Pressure: 110/86 Respiratory Rate: 16 Pulse Ox: 98 Oxygen Delivery Method: Nasal Cannula Oxygen Flow Rate (L/min): 2 Assessment Airway patent: Yes Spontaneous unlabored respirations: Yes Mental status: Awake and Calm nausea: No Vomiting: No Anesthesia Complication: No Fluid Hydration Crystalloid volume administer (ml): 600 Total IV fluid infused: 600 Progress Note Anesthesia document: Postop Eval 1 completed: Yes
[2024-07-19] MEDS: Ipratropium/Albuterol Sulfate 3 ML AMPUL.NEB INHALATION (17:02)
--- NOTE | 2024-07-19 17:39 | OP.PCM_ITS ---
Operative Report (Standard) Operative Information Date of Procedure: 07/19/24 Pre-Operative Diagnosis: CKD, prior right stage I basilic fistula Post-Operative Diagnosis: [place] Surgery/Procedure Performed: Stage II basilic transposition pill packer: Yes Mechanical Engineering Advisor: Femi Dean Tasks completed by registered nurse first assistant: Opening, Closing, Opening & closing, Hemostasis: Tie and Retracting Type of Anesthesia: General RN Documented Start/Stop Times: Operation Date: 07/19/24 11:00 Case Time Into Pre-Op 07/19/24 09:25 Out of Pre-Op 07/19/24 12:36 Anesthesia Start 07/19/24 12:38 Into Room 07/19/24 12:38 Procedure Start 07/19/24 13:09 Procedure End 07/19/24 15:40 Anesthesia End 07/19/24 15:45 Out of Room 07/19/24 15:45 Into Recovery 07/19/24 15:47 Into Phase II Recovery 07/19/24 16:57 Out of Recovery 07/19/24 16:57 Procedure Start Time: 13:10 Procedure Stop Time: 15:30 Select all DRAINS/GRAFTS/IMPLANTS that apply: None Estimated Blood Loss: 10 Specimen collected: No Description of surgery: HPI: Patient is a 73-year-old male with chronic kidney disease not yet on dialysis. He previously had a right stage I basilic fistula created and this has matured. He presents now for stage II transposition. Description of procedure: Upon obtaining form consent and verification correct patient procedure site the patient was taken to the operating where he was placed under general anesthesia. He was then positioned prepped and draped in usual sterile fashion a time was performed. Ultrasound was used to evaluate the basilic vein from the anastomosis to the axilla. The confluence with the brachial vein was high in the upper arm approaching the axilla and hope was that this could be transposed without any need for interposition synthetic material. The skin was marked and skin overlying the vein was anesthetized with 1% lidocaine. Longitudinal incision was then made and Bovie electrocautery was dissect down through subcutaneous tissue. Self-retaining retractors and put in position for dissection carried down to the fascia which was then incised and self-retaining retractor moved deeper in the wound. Once we approached the neurovascular structures sharp dissection used to dissect free the basilic vein fistula with care taken to identify and protect adjacent nerve structures. Sidebranches were ligated with silk ties and divided and once the entirety of the basilic vein was mobilized from the confluence with the brachial vein down to the antecubital crease a tunneler was then used to tunnel along the subcutaneous tissue of the anterior upper arm. The patient was in heparinized allowed to circulate for 3 minutes after which the fistula was clamped at the antecubital crease and at the axilla. The vein was then marked to maintain orientation and divided at the arterial end of the circuit. It was then secured to the tunneler and pulled through the subcutaneous space back to the distal aspect of the upper arm. The vein ends were then beveled to match and anastomosis was performed in end-to-end fashion with 6-0 Prolene in four- quadrant technique. Prior to completing suture line the vessels were backbled and flushed with heparinized saline. After completing suture line clamps removed and satisfactory stasis was noted. There is a palpable thrill throughout the fistula and a palpable radial pulse at the wrist. Heparin was then reversed with protamine and incision inspected for hemostasis. Was then closed with 2-0 Vicryl, 3-0 Vicryl, 4 Monocryl and Dermabond for the skin. At the conclusion the case the patient was taken to the recovery room with anticipated discharge home. Surgical Findings: +thrill, +radial pulse Complications Complications: No
--- NOTE | 2024-07-19 18:53 | POSTOPAN2_ITS ---
Anesthesia Postop Eval I Sum Postop Eval Completion status Anesthesia document: Postop Eval 1 completed: Yes Anesthesia Postop Eval I Summary Anesthesia Postop Eval I Summary: Anesthesia Postop Eval I: Assessment Summary Airway patent Yes 07/19/24 17:01 [employer] AND [employer]ATORY OFFICERS.[email or web address] Spontaneous unlabored Yes 07/19/24 17:01 [employer]ORY OFFICERS.[email or web address] respirations Mental status Awake,Calm 07/19/24 17:01 [employer]ATORY OFFICERS.JBLOU nausea No 07/19/24 17:01 [employer] OFFICERS.[email or web address] Vomiting No 07/19/24 17:01 [employer]ATORY OFFICERS.[email or web address] Anesthesia Postop Eval I: Fluid Summary Crystalloid volume administer 600 07/19/24 17:01 [employer] AND REGULATORY OFFICERS.[email or web address] (ml) Colloids volume administered ( ml) Blood Product volume administered (ml) Total IV fluid infused 600 07/19/24 17:01 [employer] AND [employer]ATORY OFFICERS.[email or web address] Anesthesia Postop Eval I: Summary Notes Anesthesia Complication No 07/19/24 17:01 [employer] AND [employer]ULATORY OFFICERS.[email or web address] Anesthesia Complication Comment: Post-operative progress note Anesthesia: Postop Eval II Evaluation Mental status: Awake and Calm Pain Level: 1 nausea: No Vomiting: No Complications Anesthesia Complication: No
--- NOTE | 2024-07-19 18:53 | PCM.POSTANE2 ---
Anesthesia Postop Eval I Sum Postop Eval Completion status Anesthesia document: Postop Eval 1 completed: Yes Anesthesia Postop Eval I Summary Anesthesia Postop Eval I Summary: Anesthesia Postop Eval I: Assessment Summary Airway patent Yes 07/19/24 17:01 [email or web address] Spontaneous unlabored Yes 07/19/24 17:01 [email or web address] respirations Mental status Awake,Calm 07/19/24 17:01 [facility] [email or web address] nausea No 07/19/24 17:01 [email or web address] Vomiting No 07/19/24 17:01 [email or web address] Anesthesia Postop Eval I: Fluid Summary Crystalloid volume administer 600 07/19/24 17:01 [email or web address] (ml) Colloids volume administered ( ml) Blood Product volume administered (ml) Total IV fluid infused 600 07/19/24 17:01 [facility] [email or web address] Anesthesia Postop Eval I: Summary Notes Anesthesia Complication No 07/19/24 17:01 [facility] [email or web address] Anesthesia Complication Comment: Post-operative progress note Anesthesia: Postop Eval II Evaluation Mental status: Awake and Calm Pain Level: 1 nausea: No Vomiting: No Complications Anesthesia Complication: No
== END 2024-07-19 17:42 | disposition home or self-care (01) ==
LOC: SDC 09:20 → AC 09:20
PROVIDERS: Anesthesiology; PCP Internal Medicine; Referring Provider Surgery Trauma Surgery; Visit Provider Surgery Trauma Surgery
PROC: (CPT 36819; principal; 2024-07-19 10:45)
DX: I12.9 Hypertensive chronic kidney disease with stage 1 through stage 4 chronic kidney disease, or unspecified chronic kidney disease (principal); I48.91 Unspecified atrial fibrillation; N18.9 Chronic kidney disease, unspecified; F17.210 Nicotine dependence, cigarettes, uncomplicated; Z79.01 Long term (current) use of anticoagulants
CPT/HCPCS: 36819; 01844; 36415; 36416; 80048; 85027; 85610; 94640; A4648; J2405